=== PATIENT | male | born 1975 | race American Indian/Alaskan Native ===

== ENCOUNTER 2017-10-02 05:57 | Day surgery (SDC) | payer SELFPAY ==
[2017-10-02] MEDS ORDERED: ECOTRIN PO ONE (06:20)
[2017-10-02] MEDS ORDERED: NACL 0.9% 500 ML 500 ML IV SCH (07:00)
[2017-10-02 07:08] LABS: Basophils % (Auto) 0.9 % (0.0-1.8); Eosinophils # (Auto) 0.1 K/mm3 (0.0-0.4); Hematocrit 40.5 % (35.5-45.6); Hemoglobin 13.9 gm/dl (11.8-15.2); Lymphocytes # (Auto) 1.7 K/mm3 (1.2-5.4); Lymphocytes % (Auto) 31.6 % (13.4-35.0); Mean Corpuscular HGB Conc 34 % (32-34); Mean Corpuscular Hemoglobin 29 pg (28-32); Mean Corpuscular Volume 86 fl (84-94); Monocytes # (Auto) 0.6 K/mm3 (0.0-0.8); Monocytes % (Auto) 11.5 % (0.0-7.3); Platelet Count 189 K/mm3 (140-440); Red Blood Count 4.71 M/mm3 (3.65-5.03); Red Cell Distribution Width 13.6 % (13.2-15.2)
[2017-10-02 07:19] LABS: BUN/Creatinine Ratio 13; Blood Urea Nitrogen 12 mg/dL (9-20); Calcium 8.6 mg/dL (8.4-10.2); Hemolysis Index 3
[2017-10-02 07:33] LABS: INR 0.92 (0.87-1.13)
[2017-10-02] MEDS ORDERED: HEPARIN/NS 5000 UNIT/500ML(CATH LAB) 1,000 ML IR ONE (09:36)
[2017-10-02] MEDS ORDERED: HEPARIN 10,000 UNITS/10 ML ONE (09:36)
[2017-10-02] MEDS ORDERED: SUBLIMAZE ONE (09:37)
[2017-10-02] MEDS ORDERED: XYLOCAINE 2% INFILTRATI ONE (09:37)
[2017-10-02] MEDS ORDERED: VERSED ONE (09:37)
[2017-10-02] MEDS ORDERED: APRESOLINE ONE (10:09)
--- NOTE | 2017-10-02 10:40 | Short Stay Summary ---
Short Stay Documentation Date of service: 10/02/17 - History H&P: obtained from office - Allergies and Medications Current Medications: Allergies No Known Allergies Allergy (Unverified 10/02/17 05:58) Home Medications Medication Instructions Recorded Confirmed Last Taken Type Aspirin [Aspirin TAB] 325 mg PO QDAY 10/02/17 10/02/17 10/01/17 History Hydralazine HCl 25 mg PO BID 10/02/17 10/02/17 10/02/17 07:15 History ISOSORBIDE MONOnitrate [Imdur ER] 30 mg PO DAILY 10/02/17 10/02/17 10/01/17 History Rosuvastatin Calcium [Crestor] 40 mg PO DAILY 10/02/17 10/02/17 10/01/17 History Valsartan [Diovan] 320 mg PO QDAY 10/02/17 10/02/17 10/01/17 History Active Medications Sodium Chloride (Nacl 0.9% 500 Ml) 500 mls @ 50 mls/hr IV DIRECT LORENZO Stop: 10/02/17 16:59 Last Admin: 10/02/17 07:28 Dose: 50 mls/hr - Physical exam General appearance: no acute distress Integumentary: no rash HEENT: Atraumatic Lungs: Clear to auscultation Breasts: deferred Heart: Regular rate Gastrointestinal: normal Male Genitourinary: deferred Female Genitourinary: deferred Rectal Exam: deferred Extremities: no ischemia Neurological: Normal gait - Brief post op/procedure progress note Date of procedure: 10/02/17 Pre-op diagnosis: SOB, abnormal stress test Post-op diagnosis: same Procedure: LHC, LV, renal angiogram Anesthesia: MAC Findings: See report Surgeon: ARMEN MOROCHO Estimated blood loss: none Pathology: none Condition: stable - Hospital course Hospital course: Uneventful - Disposition Condition at discharge: Good Disposition: DC-01 TO HOME OR SELFCARE Short Stay Discharge Plan Activity: no driving until cleared by PCP (for 2 days) Weight Bearing Status: Non-Weight Bearing (for 2 days) Diet: low fat, low cholesterol, low salt, diabetic Wound: keep clean and dry Follow up with: SATYA LLANES MD [Primary Care Provider] - 7 Days
[2017-10-02] MEDS ORDERED: NACL 0.9% 1000 ML 1,000 ML IV SCH (11:00)
--- NOTE | 2017-10-02 12:28 | Cardiac Catherization Report ---
LEFT HEART CATHETERIZATION ORDERING PHYSICIAN: Pat Belle MD PROCEDURE INDICATION: 1. Shortness of breath, abnormal treadmill stress test. 2. Uncontrolled systemic hypertension. PROCEDURE PERFORMED: 1. Selective left and right coronary angiography. 2. Left ventriculography. 3. Bilateral renal angiography. DESCRIPTION OF PROCEDURE: After obtaining the consent, the patient was draped using sterile technique. A 2% lidocaine was injected into the right groin. Using micropuncture, a 5-Azerbaijani vascular sheath was inserted into the right common femoral artery. A 5-Azerbaijani JL4 catheter was used to selectively engage the left coronary artery. A 5-Azerbaijani JR4 catheter was used to selectively engage the right coronary artery. A 5-Azerbaijani JR4 catheter was used to perform the left ventriculogram. A 5-Azerbaijani JR4 catheter was used to perform bilateral renal angiogram. No complications occurred during the procedure. Hemostasis was achieved at the end of the procedure using a 5-Azerbaijani Mynx device. SPECIMEN REMOVED: None. ESTIMATED BLOOD LOSS: Minimal. Physician/patient yyic-ec-soxn sedation start time was 9:47 a.m. Physician/patient xclm-zc-liir sedation stop time was 10:04 a.m. Total sedation time is 17 minutes. FINDINGS: HEMODYNAMICS: The aortic pressure is 160/110. Left ventricular systolic pressure is 160 mmHg. There was no significant gradient noted across the left ventricular outflow tract. LVEDP was measured at 35 mmHg. CARDIAC STRUCTURES: The left ventricle is normal in size. The left ventricular ejection fraction is estimated at 50%. CORONARY ANATOMY: 1. This is a right dominant circulation. 2. The left main is a short, angiographically normal vessel. 3. The LAD has evidence of mild 10% diffuse luminal irregularities. 4. The left circumflex artery has evidence of mild diffuse 10% luminal irregularities. There is evidence of a focal 40% stenosis noted in the ostial proximal second obtuse marginal. 5. The right coronary artery is a dominant vessel. The right coronary artery exhibits a mild to moderate diffuse disease. There is a focal 30% stenosis noted in the proximal segment of the right coronary artery. 6. Bilateral renal angiograms revealed patent renal arteries with no evidence of stenosis. IMPRESSION: 1. Evidence of qlpe-rb-jkodzibo nonobstructive coronary artery disease with a 40% focal stenosis of the ostium of the second obtuse marginal as well as a 30% focal stenosis of the proximal right coronary artery. 2. Normal left ventricular size with an ejection fraction estimated at 50%. 3. LVEDP measured at 35 mmHg. 4. Patent bilateral renal arteries. RECOMMENDATIONS: Follow up with referring life insurance actuary and continue current management. JOB# [id number] RHONA/TUTU
[2017-10-02 15:30] VITALS: BP 153/92
== END 2017-10-02 14:30 | disposition home or self-care (01) ==
LOC: CATHLABREC 05:57
PROVIDERS: ATTEND Internal Medicine Cardiovascular Disease
DX: I25.10 Atherosclerotic heart disease of native coronary artery without angina pectoris (principal); I10 Essential (primary) hypertension; M10.9 Gout, unspecified; E78.5 Hyperlipidemia, unspecified; F17.200 Nicotine dependence, unspecified, uncomplicated; Z98.890 Other specified postprocedural states; Z79.82 Long term (current) use of aspirin; Z79.899 Other long term (current) drug therapy; Z79.01 Long term (current) use of anticoagulants
CPT/HCPCS: 36252; 36415; 80048; 85025; 85610; 85730; 93005; 93010; 93458; 99156; C1760; J0360; J1644; J2250; J3010; J7030; J7040; Q9967

== ENCOUNTER 2019-01-18 21:11 | Emergency (ER) | payer BC, OTHER ==
[2019-01-18] MEDS ORDERED: ASPIRIN PO ONE (21:35)
[2019-01-18 22:42] LABS: Calcium 9.4 mg/dL (8.4-10.2); Hemolysis Index 16
[2019-01-18 22:43] LABS: Hematocrit 40.1 % (35.5-45.6); Hemoglobin 13.8 gm/dl (11.8-15.2); Mean Corpuscular HGB Conc 34 % (32-34); Mean Corpuscular Volume 89 fl (84-94); Red Cell Distribution Width 14.5 % (13.2-15.2)
[2019-01-18] MEDS ORDERED: PEPCID PO ONE (23:15)
[2019-01-18] MEDS ORDERED: IBUPROFEN PO ONE (23:15)
[2019-01-18] MEDS ORDERED: TYLENOL PO ONE (23:15)
[2019-01-18 23:19] LABS: Platelet Count 59 K/mm3 (140-440)
[2019-01-18] MEDS ORDERED: CARAFATE PO ONE (23:20)
[2019-01-18] MEDS ORDERED: ALUM-MAG HYDROX-SIMETH 200-200-20MG/5ML PO ONE (23:20)
--- NOTE | 2019-01-18 23:21 | Emergency Department Report ---
ED General Adult HPI - General Chief complaint: Chest Pain Stated complaint: SOB/CHEST PAIN Time Seen by Provider: 01/18/19 22:37 Source: patient, RN notes reviewed, old records reviewed Mode of arrival: Ambulatory Limitations: No Limitations - History of Present Illness Initial comments: This is a 43-year-old gentleman. The patient is not known to this provider previously. In the past, he has been seen by [facility]. His current primary care doctor is Dr. Ahmet Jimenez Today, he was seen by paramedic rn, Dr. Kristian Maloney His past medical history includes morbid obesity, probable obstructive sleep apnea, ? gout, borderline diabetes, high cholesterol, hypertension. The patient had a cardiac catheterization performed at this hospital last year, October 2017. It showed evidence of a normal left main coronary artery, evidence of mild 10% diffuse luminal irregularities, evidence of mild to moderate nonobstructive coronary artery disease, with a focal 40% stenosis of the ostium of the second obtuse marginal, as well as a 30% focal stenosis of the proximal right coronary artery, an ejection fraction of 50%, and normal bilateral renal arteries. After his catheterization, he was supposed to follow-up with the referring bean viner and continue current management. In addition, it appears that he had an episode of syncope in 2016, had a Holter monitor performed, which demonstrated 2-3 second pauses, and Wenckebach during sleep. A sleep study was recommended. Patient today presents to the emergency room today with a complaint of 3 weeks cough, feeling tired, fatigue, gasping during sleep, shortness of breath at night and during sleep, and left-sided chest discomfort. This discomfort is intermittent over the past 3 weeks. There is no vomiting or diaphoresis. There is no leg pain or leg swelling. The discomfort is intermittent, does not have exacerbating or relieving factors. The patient denies DVT, pulmonary embolus risk factors. He reports that he feels tired over the past couple of weeks, has decreased energy, and endorses that he typically falls asleep if not engaged with activity. He denies headache, neck pain, abdominal pain, leg pain, urinary symptoms, and severe headache. He is not taking aspirin currently. His bed partner endorses that he snores quite a bit at night, and appears to gasp for sleep during the nighttime -: Gradual, week(s) Location: chest Consistency: intermittent Improves with: none Worsens with: none - Related Data Home Medications Medication Instructions Recorded Confirmed Last Taken Hydralazine HCl 25 mg PO BID 10/02/17 10/02/17 10/02/17 07:15 Previous Rx's Medication Instructions Recorded Last Taken Type Aspirin 325 mg PO QDAY #30 tablet 01/18/19 Unknown Rx ISOSORBIDE MONOnitrate [Imdur ER] 30 mg PO DAILY #30 tablet 01/18/19 Unknown Rx Rosuvastatin Calcium [Crestor] 40 mg PO DAILY #30 tablet 01/18/19 Unknown Rx Valsartan [Diovan] 320 mg PO QDAY #30 tablet 01/18/19 Unknown Rx Allergies Allergy/AdvReac Type Severity Reaction Status Date / Time No Known Allergies Allergy Unverified 10/02/17 05:58 ED Review of Systems ROS: Stated complaint: SOB/CHEST PAIN Other details as noted in HPI Constitutional: malaise, weakness Eyes: denies: eye discharge ENT: congestion Respiratory: cough, shortness of breath Cardiovascular: chest pain Gastrointestinal: denies: nausea, vomiting Genitourinary: denies: urgency Musculoskeletal: back pain Skin: denies: lesions Neurological: weakness Psychiatric: denies: anxiety ED Past Medical Hx - Past Medical History Previous Medical History?: Yes Hx Hypertension: Yes Hx Congestive Heart Failure: No Hx GERD: Yes Hx HIV: No Additional medical history: High Cholesterol, Morbid Obesity - Surgical History Past Surgical History?: No Hx Coronary Stent: No Hx Pacemaker: No - Social History Smoking Status: Current Some Day Smoker Substance Use Type: None - Medications Home Medications: Home Medications Medication Instructions Recorded Confirmed Last Taken Type Hydralazine HCl 25 mg PO BID 10/02/17 10/02/17 10/02/17 07:15 History Aspirin 325 mg PO QDAY #30 tablet 01/18/19 Unknown Rx ISOSORBIDE MONOnitrate [Imdur ER] 30 mg PO DAILY #30 tablet 01/18/19 Unknown Rx Rosuvastatin Calcium [Crestor] 40 mg PO DAILY #30 tablet 01/18/19 Unknown Rx Valsartan [Diovan] 320 mg PO QDAY #30 tablet 01/18/19 Unknown Rx ED Physical Exam - General Limitations: No Limitations General appearance: alert, in no apparent distress - Head Head exam: Present: atraumatic, normocephalic - Eye Eye exam: Present: normal appearance, EOMI. Absent: nystagmus - ENT ENT exam: Present: normal exam, normal orophraynx, mucous membranes moist, normal external ear exam - Neck Neck exam: Present: normal inspection, full ROM. Absent: tenderness, meningismus - Respiratory Respiratory exam: Present: normal lung sounds bilaterally. Absent: respiratory distress - Cardiovascular Cardiovascular Exam: Present: regular rate, normal rhythm, normal heart sounds, JVD (2-3 cm of JVD bilaterally). Absent: bradycardia, tachycardia, irregular rhythm, systolic murmur, diastolic murmur, rubs, gallop - GI/Abdominal GI/Abdominal exam: Present: soft. Absent: distended, tenderness, guarding, rebound, rigid, pulsatile mass - Rectal Rectal exam: Present: deferred - Extremities Exam Extremities exam: Present: normal inspection, full ROM, other (2+ pulses noted in the bilateral upper, lower extremities. Compartments soft. No long bony tenderness. The pelvis is stable.). Absent: calf tenderness - Back Exam Back exam: Present: normal inspection, full ROM. Absent: tenderness, CVA tenderness (R), CVA tenderness (L), paraspinal tenderness, vertebral tenderness - Neurological Exam Neurological exam: Present: alert, oriented X3, other (Extraocular movements intact. Tongue midline. No facial droop. Facial sensation intact to light touch in the V1, V2, V3 distribution bilaterally. 5 and 5 strength in 4 extremities.. Sensation is intact to light touch in 4 extremities.). Absent: motor sensory deficit - Psychiatric Psychiatric exam: Present: normal affect, normal mood, anxious - Skin Skin exam: Present: warm, dry, intact, normal color. Absent: rash ED Course Vital Signs 01/18/19 01/18/19 21:26 22:33 Temperature 98.5 F Pulse Rate 74 71 Respiratory 20 13 Rate Blood Pressure 135/81 Blood Pressure 113/62 [Left] O2 Sat by Pulse 97 98 Oximetry - Reevaluation(s) Reevaluation #1: 01/19/19 01:33 Upon entering the room to discuss discharge instructions were patient's, he is noted to be sleeping comfortably, and in no acute distress. We discussed discharge instructions, and he verbalizes understanding ED Medical Decision Making - Lab Data Result diagrams: 01/18/19 21:44 01/18/19 21:44 Vital Signs 01/18/19 01/18/19 21:26 22:33 Temperature 98.5 F Pulse Rate 74 71 Respiratory 20 13 Rate Blood Pressure 135/81 Blood Pressure 113/62 [Left] O2 Sat by Pulse 97 98 Oximetry Lab Results 01/18/19 01/18/19 01/18/19 Range/Units 21:44 21:44 23:31 WBC 9.3 (4.5-11.0) K/mm3 RBC 4.50 (3.65-5.03) M/mm3 Hgb 13.8 (11.8-15.2) gm/dl Hct 40.1 (35.5-45.6) % MCV 89 (84-94) fl MCH 31 (28-32) pg MCHC 34 (32-34) % RDW 14.5 (13.2-15.2) % Plt Count 59 L (140-440) K/mm3 Lymph % (Auto) Grades 7 And 8 Visiting Teacher Ada % (Auto) Grades 7 And 8 Visiting Teacher Eos % (Auto) Grades 7 And 8 Visiting Teacher Baso % (Auto) Grades 7 And 8 Visiting Teacher Lymph # Grades 7 And 8 Visiting Teacher Ada # Grades 7 And 8 Visiting Teacher Eos # Grades 7 And 8 Visiting Teacher Baso # Grades 7 And 8 Visiting Teacher Seg Neutrophils % Grades 7 And 8 Visiting Teacher Seg Neutrophils # Grades 7 And 8 Visiting Teacher D-Dimer 214.97 (0-234) ng/mlDDU Sodium 143 (137-145) mmol/L Potassium 4.7 (3.6-5.0) mmol/L Chloride 106.1 (98-107) mmol/L Carbon Dioxide 25 (22-30) mmol/L Anion Gap 17 mmol/L BUN 13 (9-20) mg/dL Creatinine 1.2 (0.8-1.5) mg/dL Estimated GFR > 60 ml/min BUN/Creatinine Ratio 11 % Glucose 117 H (75-100) mg/dL Calcium 9.4 (8.4-10.2) mg/dL Total Bilirubin 0.20 (0.1-1.2) mg/dL Direct Bilirubin < 0.2 (0-0.2) mg/dL Indirect Bilirubin 0.0 mg/dL AST 15 (5-40) units/L ALT 14 (7-56) units/L Alkaline Phosphatase 65 (35-129) units/L Total Creatine Kinase 114 (55-170) units/L Troponin T < 0.010 (0.00-0.029) ng/mL Total Protein 7.8 (6.3-8.2) g/dL Albumin 4.1 (3.9-5) g/dL Albumin/Globulin Ratio 1.1 % 01/18/19 01/19/19 Range/Units 23:31 00:12 WBC (4.5-11.0) K/mm3 RBC (3.65-5.03) M/mm3 Hgb (11.8-15.2) gm/dl Hct (35.5-45.6) % MCV (84-94) fl MCH (28-32) pg MCHC (32-34) % RDW (13.2-15.2) % Plt Count (140-440) K/mm3 Lymph % (Auto) Ada % (Auto) Eos % (Auto) Baso % (Auto) Lymph # Ada # Eos # Baso # Seg Neutrophils % Seg Neutrophils # D-Dimer (0-234) ng/mlDDU Sodium (137-145) mmol/L Potassium (3.6-5.0) mmol/L Chloride (98-107) mmol/L Carbon Dioxide (22-30) mmol/L Anion Gap mmol/L BUN (9-20) mg/dL Creatinine (0.8-1.5) mg/dL Estimated GFR ml/min BUN/Creatinine Ratio % Glucose (75-100) mg/dL Calcium (8.4-10.2) mg/dL Total Bilirubin (0.1-1.2) mg/dL Direct Bilirubin (0-0.2) mg/dL Indirect Bilirubin mg/dL AST (5-40) units/L ALT (7-56) units/L Alkaline Phosphatase (35-129) units/L Total Creatine Kinase (55-170) units/L Troponin T < 0.010 < 0.010 (0.00-0.029) ng/mL Total Protein (6.3-8.2) g/dL Albumin (3.9-5) g/dL Albumin/Globulin Ratio % - EKG Data -: EKG Interpreted by Ri EKG shows normal: sinus rhythm Rate: normal - EKG Data When compared to previous EKG there are: no significant change 01/19/19 01:23 EKG #1 shows a normal sinus rhythm, 73 beats minute, normal axis, QTC within normal limits, poor R-wave progression, T-wave abnormalities 3, aVF, this is an abnormal EKG, this is not consistent with ST elevation myocardial infarction, appears to be unchanged from prior EKG from September 2017. EKG number tube appears to be unchanged when compared to prior EKGs, with the exception of prolonged [place] interval. - Radiology Data Radiology results: report reviewed, image reviewed X-ray is negative for acute disease. Print Report Referring Physician: SATYA PRADHAN Patient Name: VISHNU RIOS Date of : 1975 Sex: Male Report Date: 2019-01-18 Report Status: Finalized Findings [facility] [address] [place] [address] XRay Report Signed Patient: VISHNU RIOS MR#: [id number] 46 : 1975 Acct:[id number] Age/Sex: 43 / M ADM Date: 01/18/19 Loc: ED Attending Dr: Ordering Physician: SATYA PRADHAN MD Date of Service: 01/18/19 Procedure(s): XR chest 1V ap Accession Number(s): [id number] cc: SATYA PRADHAN MD Fluoro Time In Minutes: PROCEDURE: XR CHEST 1V AP TECHNIQUE: Chest radiograph single view. HISTORY: Chest Pain COMPARISONS: None . FINDINGS: Heart: Normal. M ediastinum/Vessels: Normal. Lungs/Pleural space: Normal. Bony thorax: No acute osseous abnormality. Life support devices: None. IMPRESSION: No acute cardiopulmonary abnormality. This document is electronically signed by Loida Swann MD., January 18 2019 10:49:07 PM ET Transcribed By: [facility] Dictated By: LOIDA SWANN Electronically Authenticated By: LOIDA SWANN Signed Date/Time: 01/19/19 0030 - Medical Decision Making Differential diagnosis, including the not limited to: Obstructive sleep apnea, pulmonary hypertension, pulmonary embolus, stable angina, GERD, gastritis, hiatal hernia, obstructive sleep apnea, obesity hypoventilation syndrome Assessment and plan: 43-year-old gentleman, no pulmonary embolus or DVT risk factors, low risk by well's criteria, negative d-dimer, perc negative, who had a definitive cardiac risk stratification last year. His EKG today is abnormal, but appears to be unchanged when compared to his prior EKG from September 2017. He is chest pain-free here in the emergency room. A troponin is negative 2. EKG is unchanged 2. The patient most likely has undiagnosed obstructive sleep apnea, and probable pulmonary hypertension. I had an extensive discussion with the patient. We recommended diets, left, medications and aggressive weight loss. We also recommend outpatient sleep study to establish diagnosis of sleep apnea, and to initiate CPAP therapy. I contacted the bean viner that perf ormed his catheterization last year, Dr. Sylvie Manning, and we discussed the patient's symptoms, laboratory studies, EKG, and catheterization report. The patient at this point and will not benefit from hospitalization. We will start him and continue him on aspirin and his current outpatient medications, and the aforementioned bean viner has been gracious enough to agree to see the patient tomorrow between 1:30 and 4:00 PM for follow-up. Patient may have mild right-sided heart failure, however, he does not appear to be floridly fluid overloaded, we will defer to cardiology tomorrow in terms of initiating diuretic therapy. He does not have crackles, he does not have rales, he only has minimal lower extremity edema. The patient is reliable to follow up with cardiology as an outpatient. In addition, the patient will be referred to outpatient pulmonology for sleep apnea testing. Dr Pepe typically works with Dr Manning Critical care attestation.: If time is entered above; I have spent that time in minutes in the direct care of this critically ill patient, excluding procedure time. ED Disposition Clinical Impression: Dyspnea, History of chest pain Disposition: DC-01 TO HOME OR SELFCARE Is pt being admited?: No Does the pt Need Aspirin: No Condition: Good Additional Instructions: Take the medications as prescribed. Follow up with the listed bean viner tomorrow, at the following location, anytime between 1:00 and 4:00 PM. Tried to present to the office is closed to 1:00 as possible. When presenting to the office, please let the front office staff know that we have spoken to Dr. Morocho, and he would like to see the patient tomorrow in the office for follow- up. [facility] [address] [place] [address], [place] [address] In addition, the patient most likely has obstructive sleep apnea, likely causing shortness of breath, weakness, fatigue and malaise. The patient will need to follow up with an outpatient sleep specialist her pulmonary doctor, such as Dr. Pepe, as soon as possible, to obtain outpatient sleep study, and initiate appropriate therapy, including possible CPAP. In addition, I recommend that the patient aggressively attempt to lose weight, exercise on a regular basis as tolerated, and modified diet to include plenty of fibers, vegetables, lean meat and protein, and avoid consumption of simple carbohydrates, and sugars. Please return to the emergency room right away with new, worsening or different symptoms, or symptoms not present on the initial emergency room evaluation. Prescriptions: Aspirin 325 mg PO QDAY #30 tablet Rosuvastatin Calcium [Crestor] 40 mg PO DAILY #30 tablet Valsartan [Diovan] 320 mg PO QDAY #30 tablet ISOSORBIDE MONOnitrate [Imdur ER] 30 mg PO DAILY #30 tablet Referrals: ARMEN MOROCHO MD [Staff Physician] - 3-5 Days ADA PEPE MD [Staff Physician] - 3-5 Days
[2019-01-19 00:19] LABS: Alanine Aminotransferase 14 units/L (7-56); Albumin 4.1 g/dL (3.9-5); BUN/Creatinine Ratio 11; Blood Urea Nitrogen 13 mg/dL (9-20)
--- NOTE | 2019-01-19 00:30 | XRay Report ---
PROCEDURE: XR CHEST 1V AP TECHNIQUE: Chest radiograph single view. HISTORY: Chest Pain COMPARISONS: None . FINDINGS: Heart: Normal. Mediastinum/Vessels: Normal. Lungs/Pleural space: Normal. Bony thorax: No acute osseous abnormality. Life support devices: None. IMPRESSION: No acute cardiopulmonary abnormality. This document is electronically signed by Mike Swann MD., January 18 2019 10:49:07 PM ET
[2019-01-19 00:31] LABS: Bilirubin,Direct < 0.2 mg/dL (0-0.2)
[2019-01-19 01:44] VITALS: BP 113/65
== END 2019-01-19 01:45 | disposition home or self-care (01) ==
LOC: ED 21:11
DX: R07.89 Other chest pain (principal); R06.02 Shortness of breath
CPT/HCPCS: 36415; 71045; 80048; 80076; 82550; 84484; 85025; 85379; 93005; 93010